=== PATIENT | male | born 1980 | race African-American/Black ===

== ENCOUNTER 2017-09-05 16:29 | Emergency (ER) | payer OTHER ==
[~2017-09-05 16:29] MED LIST: Iopamidol 370 76% 125 ML VIAL FS ONE
[2017-09-05 17:02] LABS: #Basophils 0.1 thou/uL (0.0-0.2); #Eosinphils 0.5 thou/uL (0.0-0.7); #Lymphocytes 3.5 thou/uL (1.20-3.40); #Monocytes 0.9 thou/uL (0.11-0.59); %Basophils 0.5 % (0.0-1.0); %Eosinophils 4.3 % (0.0-10.0); %Lymphocytes 28.9 % (21.0-51.0); %Monocytes 7.4 % (0.0-10.0); %Neutrophils 58.9 % (42.0-75.0); Hemoglobin 12.2 g/dL (14.0-18.0); Mean Corpuscular HGB CONC 32.2 g/dL (32.0-36.0); Mean Corpuscular Volume 77.8 fL (78.0-98.0); Mean Platelet Volume 5.2 fL (7.4-10.4); Platelet Count 398 thou/uL (130-400); RBC Distribution Width 12.6 % (11.5-14.5); Red Blood Cell (RBC) Count 4.85 mill/uL (4.70-6.10); White Blood Cell (WBC) Count 11.9 thou/uL (4.8-10.8)
[2017-09-05 17:16] LABS: ALT (SGPT) 31 U/L (8-55); AST (SGOT) 17 U/L (5-34); Albumin 3.9 g/dL (3.5-5.0); Alkaline Phosphatase 127 U/L (40-150); Anion Gap 12 mmol/L (10-20); BUN (Urea Nitrogen) 7 mg/dL (8.9-20.6); Bilirubin, Total 0.2 mg/dL (0.2-1.2); Calc. Creatinine Clearance 0 mL/min (70-130); Calcium 9.3 mg/dL (7.8-10.44); Carbon Dioxide 24 mmol/L (22-29); Chloride 108 mmol/L (98-107); Estimated GFR-MDRD Greater than 90; Globulin 3.1 g/dL (2.4-3.5); Glucose 108 mg/dL (70-105); Potassium 3.6 mmol/L (3.5-5.1); Sodium 140 mmol/L (136-145)
[2017-09-05] MEDS ORDERED: Morphine 4 MG/ML VIAL ONE ×2 (17:19→17:39)
[2017-09-05 17:34] LABS: Bilirubin Negative (Negative); Blood, Urine Negative (Negative); Clarity Clear (Clear); Glucose, Urine (Dipstick) Negative (Negative); Leukocyte Negative (Negative); Nitrite Negative (Negative); Protein, Urine (Dipstick) Negative (Neg-Trace); Urobilinogen 0.2 mg/dL (0.2-1.0); pH, Urine 7.5 (5.0-9.0)
[2017-09-05] MEDS ORDERED: Lorazepam 2 MG/ML VIAL ONE (18:13)
[2017-09-05] MEDS ORDERED: Ketorolac Tromethamine 30 MG/ML VIAL ONE (18:13)
[2017-09-05] MEDS ORDERED: Mag-Al Plus 1200 MG/1200 MG/120 MG/30 ML UDCUP ONE (18:29)
[2017-09-05] MEDS ORDERED: Lidocaine Viscous Sol 2% 15 ml UD Cup ONE (18:29)
--- NOTE | 2017-09-05 19:32 | CT ---
CTA THORAX WITH CONTRAST: 09/05/17 (Computed Tomographic Angiography, chest(noncoronary) with contrast material, and image postprocessin g) (PE protocol) HISTORY: 37-year-old male with sudden onset of right upper chest and back pain. Status post surgical removal o f tumor from right side of chest three weeks ago. History of pulmonary embolism in 2010. TECHNIQUE: IV injection of iodinated contrast: Isovue Scan acquisition timing attempted to coincide with iodinated contrast bolus reaching maximal density in pulmonary arteries. 3D MIP reconstructions. FINDINGS: At the right anterolateral chest wall and subcutaneous fat, there is an approximately 4 x 3 cm soft t issue density inseparable from the chest wall and intercostal muscles, broadly abutting the lateral a spect of one of the right ribs, and associated with adjacent fat stranding, which probably represents postsurgical changes. There is no destruction or fracture of the underlying rib. The lungs are essen tially clear. No pulmonary thromboembolism identified. No thoracic aortic aneurysm or dissection. No pleural effusion, mediastinal lymphadenopathy, hilar lymphadenopathy, pulmonary edema, air space dens ity, or pneumothorax. No pericardial effusion. IMPRESSION: 1. Postsurgical changes involving the right chest wall. 2. Otherwise negative. jn[] POS: RACHANA
== END 2017-09-05 18:53 | disposition home or self-care (01) ==
LOC: MADERS 16:29
DX: I10 Essential (primary) hypertension (principal); F17.210 Nicotine dependence, cigarettes, uncomplicated; E05.90 Thyrotoxicosis, unspecified without thyrotoxic crisis or storm; Z79.899 Other long term (current) drug therapy
CPT/HCPCS: 36415; 71275; 80053; 81003; 84484; 85025; 93005; 96374; 96375; J1885; J2060; J2270